=== PATIENT | male | born 1950 | race Caucasian/White ===

== ENCOUNTER → 2017-11-28 | Outpatient (CLI) | payer OTHER ==
[~2017-11-28] MED LIST: ALBU0.63 NEB; ALPH300C PO; ATOR20TA9 PO; CAYE450C4 PO; CHOL500015 PO; DIGO250T PO; DILT300C42 PO; INSU100C5 SQ-INSULIN; INSU100V8 SQ; KELP PO; RIVA20TA PO; SELE200T10 PO; VITA100C8 PO; VITAMIN A PO; [UNRECOGNIZED DRUG - CODE] PO; [UNRECOGNIZED DRUG - OTHER] PO; [UNRECOGNIZED DRUG - OTHER] PO; [UNRECOGNIZED DRUG - OTHER] PO
[2017-11-28 15:26] LABS: MICROSCOPIC NOT IND
[2017-11-28 15:30] LABS: CULTURE INDICATED? NO
[2017-11-28 15:34] LABS: ALBUMIN 3.4 g/dL (3.4-5.0); ANION GAP 6 mmol/L (5-15); CALCIUM 8.9 mg/dL (8.5-10.1); CHLORIDE 102 mmol/L (98-107)
[2017-11-28 15:38] LABS: ALANINE AMINOTRANSFERASE 31 U/L (12-78); ALKALINE PHOSPHATASE 78 U/L (45-117); BILIRUBIN,TOTAL 0.9 mg/dL (0.2-1.0); TOTAL PROTEIN 7.3 g/dL (6.4-8.2)
[2017-11-28 15:44] LABS: BASOPHILS # (AUTO) 0.06 x10^3/uL (0-0.1); BASOPHILS % (AUTO) 1 % (0-1); EOSINOPHILS # (AUTO) 0.16 x10^3/uL (0-0.4); EOSINOPHILS % (AUTO) 1 % (1-7); LYMPHOCYTES # (AUTO) 2.77 x10^3/uL (1-3.4); LYMPHOCYTES % (AUTO) 24 % (22-44); MD NO; MEAN CORPUSCULAR HEMOGLOBIN 33.8 pg (27.5-34.5); MEAN CORPUSCULAR HGB CONC 33.6 g/dL (33.2-36.2); MEAN CORPUSCULAR VOLUME 100.7 fL (81-97); MEAN PLATELET VOLUME 7.3 fL (7.4-10.4); MONOCYTES # (AUTO) 1.22 x10^3/uL (0.2-0.8); MONOCYTES % (AUTO) 11 % (2-9); NEUTROPHILS # (AUTO) 7.34 x10^3/uL (1.8-6.8); NEUTROPHILS % (AUTO) 64 % (42-75); PLATELET COUNT 334 x10^3/uL (130-400); RED BLOOD COUNT 4.76 x10^6/uL (4.38-5.82); RED CELL DISTRIBUTION WIDTH 16.4 % (9.4-14.8)
[2017-11-28 15:46] LABS: INTERNATIONAL NORMALIZED RATIO 0.96 (0.93-1.1); PROTHROMBIN TIME 9.9 Seconds (9.6-11.5)
== END ==
LOC: STAR 13:51
PROVIDERS: ATTEND Neurological Surgery
DX: Z01.818 Encounter for other preprocedural examination (principal); R94.31 Abnormal electrocardiogram [ECG] [EKG]
CPT/HCPCS: 36415; 71046; 80053; 81003; 85025; 85610; 85730; 93005

== ENCOUNTER 2017-12-07 07:00 | Inpatient (IN) | payer OTHER ==
[~2017-12-07] VITALS: Ht 168.9 cm; Wt 95.1 kg
[~2017-12-07 07:00] MED LIST changes: +BACITRACIN 50,000 UNIT ONE; +BUPIVACAINE 0.25% ONE; +EPINEPHRINE 1 MG/ML, 1ML ONE; +THROMBIN 5,000 UNIT VIAL TP ONE
[2017-12-07] MEDS ORDERED: OxyconTIN ER 10 MG TAB.ER PO STA (09:38)
[2017-12-07] MEDS ORDERED: ONDANSETRON ODT 8 MG PO STA (09:38)
[2017-12-07] MEDS ORDERED: LACTATED RINGERS 1,000 ML IV SCH (10:02)
[2017-12-07 10:07] VITALS: BP 113/74
[2017-12-07] MEDS: GABAPENTIN 300 MG CAPSULE PO STA ×2 (10:28→10:31)
[2017-12-07] MEDS: ACETAMINOPHEN 500 MG TABLET PO STA ×2 (10:28→10:31)
[2017-12-07] MEDS ORDERED: MIDAZOLAM 1 MG/ML, 2ML ONE (10:47)
[2017-12-07] MEDS ORDERED: FENTANYL PF 250 MCG/5ML ONE (10:47)
[2017-12-07] MEDS ORDERED: LIDOCAINE-MPF 2% ,5ML ONE (10:48)
[2017-12-07] MEDS ORDERED: PROPOFOL 10 MG/ML, 20ML ONE (10:48)
[2017-12-07] MEDS ORDERED: WATER-INJECTION,STERILE 10 ML IV ONE (10:49)
[2017-12-07] MEDS ORDERED: CEFAZOLIN 1,000 MG ONE ×2 (10:49)
[2017-12-07] MEDS ORDERED: ROCURONIUM 10MG/ML,5ML ONE (10:50)
[2017-12-07] MEDS ORDERED: DEXAMETHASONE 4 MG/ML, 1ML ONE ×2 (10:50)
[2017-12-07] MEDS ORDERED: VANCOMYCIN 1,000 MG ONE (11:32)
[2017-12-07] MEDS ORDERED: BUPIVACAINE 0.25% ONE (11:32)
[2017-12-07] MEDS ORDERED: PHENYLEPHRINE 10 MG/ML ONE (11:52)
[2017-12-07] MEDS ORDERED: PROMETHAZINE 25 MG/ML, 1ML IV PRN (12:30)
[2017-12-07] MEDS ORDERED: HYDROmorphone 1 MG/ML, 1ML IV PRN (12:30)
[2017-12-07] MEDS ORDERED: hydrALAzine 20 MG/ML, 1ML IV PRN (12:30)
[2017-12-07] MEDS ORDERED: HALOPERIDOL 5 MG/ML IV PRN (12:30)
[2017-12-07] MEDS ORDERED: ALBUTEROL SULFATE 2.5 MG/3 ML NPPB PRN (12:30)
[2017-12-07] MEDS ORDERED: MEPERIDINE/PF 25MG/0.5ML IVPush PRN (12:30)
[2017-12-07] MEDS ORDERED: OXYcodone 5 MG/5 ML ORAL.SOL UDC PO PRN (12:30)
[2017-12-07] MEDS ORDERED: LABETALOL 5MG/ML, 20ML IV PRN (12:30)
[2017-12-07] MEDS ORDERED: DIAZEPAM 5 MG/ML, 2ML IVPush PRN (12:30)
[2017-12-07] MEDS ORDERED: FENTANYL PF 100 MCG/2ML IV PRN (12:30)
[2017-12-07] MEDS ORDERED: BUPIVACAINE/PF 0.25% INFIL ONE ×2 (12:56)
[2017-12-07] MEDS ORDERED: EPINEPHRINE 1 MG/ML, 1ML INFIL ONE (12:57)
[2017-12-07] MEDS ORDERED: VANCOMYCIN 1,000 MG IM ONE (12:57)
[2017-12-07] MEDS ORDERED: PROMETHAZINE 25 MG/ML, 1ML IM PRN (13:30)
[2017-12-07] MEDS ORDERED: BISACODYL 10 MG SUPP PR PRN (13:30)
[2017-12-07] MEDS ORDERED: SENNA/DOCUSATE TABLET PO PRN (13:30)
[2017-12-07] MEDS ORDERED: ALBUTEROL SULFATE 2.5 MG/3 ML HHN PRN (13:30)
[2017-12-07] MEDS ORDERED: DIPHENHYDRAMINE 50 MG/ML, 1ML IVPush PRN (13:30)
[2017-12-07] MEDS ORDERED: DIPHENHYDRAMINE 50 MG CAPSULE PO PRN (13:30)
[2017-12-07] MEDS ORDERED: METHOCARBAMOL 750 MG TABLET PO PRN (13:30)
[2017-12-07] MEDS ORDERED: HYDROcodone/APAP 5/325 TABLET PO PRN (13:30)
[2017-12-07] MEDS ORDERED: HYDROmorphone 1 MG/ML, 1ML IVPush PRN (13:30)
[2017-12-07] MEDS ORDERED: LABETALOL 5MG/ML, 20ML IVPush PRN (13:30)
[2017-12-07] MEDS ORDERED: PHARMACY MAY ADJ FOR RENAL FX MC PRN (13:30)
[2017-12-07] MEDS ORDERED: ONDANSETRON 2MG/ML, 2ML IVPush PRN (13:30)
[2017-12-07] MEDS ORDERED: INSULIN REGULAR 100 UNITS/ML, 3ML VIAL SQ-INSULIN PRN (13:30)
[2017-12-07] MEDS ORDERED: MAGNESIUM HYDROXIDE 8%, 30ML UDC PO PRN (13:30)
[2017-12-07] MEDS ORDERED: OXYcodone 5 MG/5 ML ORAL.SOL UDC ONE (13:49)
[2017-12-07] MEDS ORDERED: LORazepam 2 MG/ML, 1ML IVPush PRN (14:00)
[2017-12-07] MEDS ORDERED: NICOTINE 14MG/24 HR PATCH.TD24 TD SCH ×2 (15:30→16:00)
[2017-12-07] MEDS ORDERED: INSULIN LISPRO 100 UNITS/ML, PEN SQ-INSULIN SCH (16:00)
[2017-12-07] MEDS: NS + 20MEQ KCL 1,000 ML IV SCH (16:47)
[2017-12-07] MEDS: CEFAZOLIN PMX 1GM/50ML 50 ML IVPB SCH (18:47)
[2017-12-07 19:24] VITALS: BP 116/53
[2017-12-07] MEDS: OXYcodone/APAP 5/325MG TABLET PO PRN (20:35)
[2017-12-07] MEDS ORDERED: ATORVASTATIN 20 MG TABLET PO SCH (21:00)
[2017-12-07] MEDS ORDERED: INSULIN GLARGINE 100 UNITS/ML, PEN SQ-INSULIN SCH (21:00)
[2017-12-07] MEDS: INSULIN LISPRO 100 UNITS/ML, PEN SQ-INSULIN SCH (21:00)
[2017-12-07] MEDS ORDERED: INSULIN LISPRO 100 UNITS/ML, PEN SQ-INSULIN ONE (22:10)
[2017-12-07] MEDS: SODIUM CHLORIDE FLUSH 10ML SYR IVF SCH (22:12)
[2017-12-08 00:11] VITALS: BP 127/60
[2017-12-08] MEDS: OXYcodone/APAP 5/325MG TABLET PO PRN ×2 (02:26→09:21)
[2017-12-08] MEDS: CEFAZOLIN PMX 1GM/50ML 50 ML IVPB SCH (02:45)
[2017-12-08] MEDS: NS + 20MEQ KCL 1,000 ML IV SCH (02:50)
[2017-12-08 03:35] VITALS: BP 116/61
[2017-12-08 05:30] LABS: CHLORIDE 105 mmol/L (98-107)
[2017-12-08 05:35] LABS: ANION GAP 6 mmol/L (5-15); CALCIUM 8.8 mg/dL (8.5-10.1); CREATININE 1.03 mg/dL (0.7-1.3)
[2017-12-08 05:38] LABS: MEAN CORPUSCULAR HEMOGLOBIN 34.1 pg (27.5-34.5); MEAN CORPUSCULAR HGB CONC 33.5 g/dL (33.2-36.2); MEAN CORPUSCULAR VOLUME 101.7 fL (81-97); MEAN PLATELET VOLUME 8.1 fL (7.4-10.4); PLATELET COUNT 338 x10^3/uL (130-400); RED BLOOD COUNT 4.39 x10^6/uL (4.38-5.82); RED CELL DISTRIBUTION WIDTH 15.8 % (9.4-14.8)
[2017-12-08 06:18] LABS: BASOPHILS # (AUTO) 0.03 x10^3/uL (0-0.1); BASOPHILS % (AUTO) 0 % (0-1); EOSINOPHILS % (AUTO) 0 % (1-7); LYMPHOCYTES # (AUTO) 0.69 x10^3/uL (1-3.4); LYMPHOCYTES % (AUTO) 3 % (22-44); MD SCAN; MONOCYTES # (AUTO) 1.55 x10^3/uL (0.2-0.8); MONOCYTES % (AUTO) 7 % (2-9); NEUTROPHILS # (AUTO) 18.54 x10^3/uL (1.8-6.8); NEUTROPHILS % (AUTO) 89 % (42-75)
[2017-12-08] MEDS ORDERED: DIGOXIN 0.125 MG TABLET ONE (07:11)
[2017-12-08 07:15] VITALS: BP 164/78
[2017-12-08] MEDS: INSULIN GLARGINE 100 UNITS/ML, PEN SQ-INSULIN SCH ×2 (07:22→09:00)
[2017-12-08] MEDS: INSULIN LISPRO 100 UNITS/ML, PEN SQ-INSULIN SCH (07:22)
[2017-12-08 07:37] VITALS: BP 139/79
[2017-12-08] MEDS ORDERED: DIGOXIN 0.25 MG TABLET PO SCH (09:00)
[2017-12-08] MEDS ORDERED: DILTIAZEM 300 MG CAP.ER.24H PO SCH (09:00)
[2017-12-08] MEDS ORDERED: RIVAROXABAN 20 MG TABLET PO SCH (09:00)
[2017-12-08] MEDS: SODIUM CHLORIDE FLUSH 10ML SYR IVF SCH (09:00)
[2017-12-08] MEDS ORDERED: CLIN150C14 PO (09:51)
== END 2017-12-08 11:20 | disposition home or self-care (01) | DRG 516 ==
LOC: ORIP 09:28 → 4NOR 15:10 → DCLOUNGE 12-08 11:03
PROVIDERS: ADMIT Neurological Surgery; ATTEND Neurological Surgery
PROC: 01NB0ZZ Release Lumbar Nerve, Open Approach (ICD-10-PCS; principal; 2017-12-07 12:00)
DX: M48.062 Spinal stenosis, lumbar region with neurogenic claudication (principal); G95.29 Other cord compression; M51.36 Other intervertebral disc degeneration, lumbar region; E11.65 Type 2 diabetes mellitus with hyperglycemia; M54.16 Radiculopathy, lumbar region; D72.829 Elevated white blood cell count, unspecified; J45.909 Unspecified asthma, uncomplicated; F10.20 Alcohol dependence, uncomplicated; I48.91 Unspecified atrial fibrillation; F41.9 Anxiety disorder, unspecified; M19.90 Unspecified osteoarthritis, unspecified site; F17.200 Nicotine dependence, unspecified, uncomplicated; G89.29 Other chronic pain; Z82.49 Family history of ischemic heart disease and other diseases of the circulatory system; Z80.9 Family history of malignant neoplasm, unspecified
CPT/HCPCS: 36415; 72100; 80048; 82947; 82962; 85025; C1729; J0171; J0690; J1100; J2250; J2704; J3010; J3370; J3480; J3490; Q0162; J1815; J2370; J7120

== ENCOUNTER → 2018-04-17 | Outpatient (CLI) | payer OTHER ==
[~2018-04-17] MED LIST changes: -BACITRACIN 50,000 UNIT ONE; -BUPIVACAINE 0.25% ONE; +CLIN150C14 PO; -EPINEPHRINE 1 MG/ML, 1ML ONE; -THROMBIN 5,000 UNIT VIAL TP ONE; +VITA1TAB19 PO
[2018-04-17 15:36] LABS: BASOPHILS # (AUTO) 0.06 x10^3/uL (0-0.1); BASOPHILS % (AUTO) 1 % (0-1); EOSINOPHILS # (AUTO) 0.26 x10^3/uL (0-0.4); EOSINOPHILS % (AUTO) 2 % (1-7); LYMPHOCYTES # (AUTO) 2.73 x10^3/uL (1-3.4); LYMPHOCYTES % (AUTO) 25 % (22-44); MD NO; MEAN CORPUSCULAR HEMOGLOBIN 32.6 pg (27.5-34.5); MEAN CORPUSCULAR HGB CONC 33.6 g/dL (33.2-36.2); MEAN CORPUSCULAR VOLUME 97.2 fL (81-97); MEAN PLATELET VOLUME 7.8 fL (7.4-10.4); MONOCYTES # (AUTO) 0.94 x10^3/uL (0.2-0.8); MONOCYTES % (AUTO) 9 % (2-9); NEUTROPHILS # (AUTO) 6.84 x10^3/uL (1.8-6.8); NEUTROPHILS % (AUTO) 63 % (42-75); PLATELET COUNT 360 x10^3/uL (130-400); RED BLOOD COUNT 5.02 x10^6/uL (4.38-5.82); RED CELL DISTRIBUTION WIDTH 14.4 % (9.4-14.8)
[2018-04-17 15:40] LABS: ALANINE AMINOTRANSFERASE 29 U/L (12-78); ALBUMIN 3.2 g/dL (3.4-5.0); ANION GAP 8 mmol/L (5-15); CALCIUM 8.5 mg/dL (8.5-10.1); CHLORIDE 104 mmol/L (98-107); CREATININE 0.85 mg/dL (0.7-1.3)
[2018-04-17 15:42] LABS: INTERNATIONAL NORMALIZED RATIO 0.97 (0.93-1.1)
[2018-04-17 15:43] LABS: ALKALINE PHOSPHATASE 96 U/L (45-117); BILIRUBIN,TOTAL 0.5 mg/dL (0.2-1.0); TOTAL PROTEIN 7.3 g/dL (6.4-8.2)
[2018-04-17 16:05] LABS: MICROSCOPIC NOT IND
[2018-04-17 16:28] LABS: CULTURE INDICATED? NO
== END | disposition home or self-care (01) ==
LOC: STAR 14:14
PROVIDERS: ATTEND Neurological Surgery
DX: Z01.818 Encounter for other preprocedural examination (principal); M48.02 Spinal stenosis, cervical region; M54.12 Radiculopathy, cervical region; M54.2 Cervicalgia
CPT/HCPCS: 36415; 71046; 80053; 81003; 85025; 85610; 85730; 93005

== ENCOUNTER 2020-08-18 09:31 | Day surgery (SDC) | payer OTHER ==
[~2020-08-18] VITALS: Ht 167.6 cm; Wt 103.3 kg
[~2020-08-18 09:31] MED LIST changes: +AMIO200T42 PO; +ATOR20TA37 PO; -ATOR20TA9 PO; -CLIN150C14 PO; +CLIN150C15 PO; -DIGO250T PO; +DIGO250T3 PO; +Fish oil PO; +METH750T87 PO; +OXYC1TAB14 PO; +OXYC5CAP2 PO; +PROAIR INH; +VITA100C10 PO; -VITA100C8 PO; +[UNRECOGNIZED DRUG - OTHER] PO
[2020-08-18 10:09] VITALS: BP 117/80
[2020-08-18] MEDS ORDERED: CHLORHEXIDINE 15 ML UDC ONE (10:19)
[2020-08-18] MEDS ORDERED: LACTATED RINGERS 1,000 ML IV SCH (10:30)
[2020-08-18] MEDS ORDERED: CHLORHEXIDINE 15 ML UDC MM ONE (10:30)
[2020-08-18] MEDS ORDERED: BUPIVACAINE/PF 0.25% ONE (10:54)
[2020-08-18] MEDS ORDERED: LIDOCAINE 1%, 20ML ONE (10:54)
[2020-08-18] MEDS ORDERED: FENTANYL PF 100 MCG/2ML ONE (11:19)
[2020-08-18] MEDS ORDERED: BUPIVACAINE 0.25% INFIL ONE (11:29)
[2020-08-18] MEDS ORDERED: LIDOCAINE 1%, 20ML INFIL ONE (11:29)
[2020-08-18] MEDS ORDERED: LIDOCAINE-MPF 2% ,5ML ONE (11:46)
[2020-08-18] MEDS ORDERED: PROPOFOL 10 MG/ML, 20ML ONE (11:46)
[2020-08-18] MEDS ORDERED: FENTANYL PF 100 MCG/2ML IV PRN (12:00)
[2020-08-18] MEDS ORDERED: OXYcodone 5 MG/5 ML ORAL.SOL UDC PO PRN (12:00)
[2020-08-18] MEDS ORDERED: ONDANSETRON 2MG/ML, 2ML IVPush PRN (12:00)
[2020-08-18] MEDS ORDERED: ACETAMINOPHEN 325 MG TABLET PO PRN (12:00)
[2020-08-18] MEDS ORDERED: AMIODARONE 200 MG TABLET PO ONE (12:30)
[2020-08-18] MEDS ORDERED: OXYcodone 5 MG/5 ML ORAL.SOL UDC ONE (12:46)
== END 2020-08-18 14:30 | disposition home or self-care (01) ==
LOC: OUT 09:31
PROVIDERS: ATTEND Surgery Surgery of the Hand
DX: G56.03 Carpal tunnel syndrome, bilateral upper limbs (principal); J44.9 Chronic obstructive pulmonary disease, unspecified; E11.9 Type 2 diabetes mellitus without complications; M19.90 Unspecified osteoarthritis, unspecified site; F17.200 Nicotine dependence, unspecified, uncomplicated; Z20.822 Contact with and (suspected) exposure to COVID-19; Z79.891 Long term (current) use of opiate analgesic; Z79.899 Other long term (current) drug therapy; Z88.0 Allergy status to penicillin; Z88.8 Allergy status to other drugs, medicaments and biological substances; Z82.61 Family history of arthritis
CPT/HCPCS: 64721; 82962; 87635; 93005; J2704; J3010; J7120